=== PATIENT | male | born 1995 ===

== ENCOUNTER 2019-02-01 11:07 | Outpatient (REF) | payer BC, SELFPAY ==
[2019-02-01 22:12] LABS: Abs Immature Grans 0.03 k/cumm (0.0-0.09); Absolute Basophil Count 0.04 k/cumm (0.0-0.2); Absolute Eosinophil Count 0.31 k/cumm (0.0-0.7); Absolute Lymphocyte Count 2.63 k/cumm (1.2-3.4); Absolute Monocyte Count 0.82 k/cumm (0.11-0.7); Absolute Neutrophil Count 5.92 k/cumm (1.2-6.7); Basophils % 0.4; Eosinophils % 3.2; HCT 46.5 % (40.0-50.0); HGB 15.8 g/dL (13.5-17.5); Immature Grans % 0.3; Mean Corpuscular Hemoglobin 28.4 pg (27.0-33.0); Mean Corpuscular Volume 83.6 fL (80-95); Mean Platelet Volume 10.6 fL (8.0-11.0); Monocytes % 8.4; Neutrophils % 60.7; Platelet Count 269 x1000/uL (130-400); RBC 5.56 m/cumm (4.50-6.00); RBC Distribution Width 13.8 % (11.8-14.1); White Blood Cell Count 9.75 k/cumm (4.4-10.8)
[2019-02-01 22:50] LABS: ALT 49 U/L (16-63); AST 28 U/L (15-37); Albumin 4.3 g/dL (3.4-5.0); Alkaline Phosphatase 66 U/L (46-116); Anion Gap 10.2 mmol/L (3-11); BUN 15 mg/dL (7-18); Bilirubin, Total 0.4 mg/dL (0.2-1.0); CO2 25.8 mmol/L (21.0-32.0); CREATININE 0.96 mg/dL (0.70-1.30); Calcium 9.3 mg/dL (8.5-10.1); Calculated LDL 118 mg/dL; Chloride 105 mmol/L (98-107); Cholesterol 193 mg/dL (50-200); Glucose 86 mg/dL (70-100); HDL Cholesterol 29 mg/dL (40-60); Potassium 4.3 mmol/L (3.5-5.1); Sodium 141 mmol/L (136-145); TSH (W/Ref FT4) 1.46 uIU/mL (0.36-3.74); Total Protein 7.1 g/dL (6.4-8.2); Triglyceride 230 mg/dL (30-150)
[2019-02-01 22:51] LABS: Hemoglobin A1C 5.6 % (4.5-6.2)
== END 2019-02-01 11:27 ==
LOC: NCHCN 11:07
PROVIDERS: PCP Nurse Practitioner Community Health; Visit Provider Nurse Practitioner Community Health
DX: F41.9 Anxiety disorder, unspecified (principal); Z68.41 Body mass index [BMI] 40.0-44.9, adult; Z82.49 Family history of ischemic heart disease and other diseases of the circulatory system; Z83.49 Family history of other endocrine, nutritional and metabolic diseases; Z80.9 Family history of malignant neoplasm, unspecified
CPT/HCPCS: 80053; 80061; 83036; 84443; 85025

== ENCOUNTER 2022-12-10 10:24 | Outpatient (REF) | payer BC, SELFPAY ==
[2022-12-10 16:05] LABS: ALT 42 U/L (16-63); AST 29 U/L (15-37); Albumin 3.7 g/dL (3.4-5.0); Alkaline Phosphatase 69 U/L (46-116); Anion Gap 10.3 mmol/L (3-11); BUN 10 mg/dL (7-18); Bilirubin, Total 0.6 mg/dL (0.2-1.0); CO2 24.7 mmol/L (21.0-32.0); Calcium 9.6 mg/dL (8.5-10.1); Calculated LDL 119 mg/dL (<100); Chloride 104 mmol/L (98-107); Cholesterol 183 mg/dL (<200); Estimated GFR 105.14 (mL/min/1.73m2); Glucose 99 mg/dL (74-106); HDL Cholesterol 28 mg/dL (40-60); Sodium 139 mmol/L (136-145); Total Protein 7.1 g/dL (6.4-8.2); Triglyceride 181 mg/dL (<150)
== END 2022-12-10 10:25 | disposition home or self-care (01) ==
LOC: NCHCN 10:24
PROVIDERS: PCP Nurse Practitioner Community Health; Visit Provider Nurse Practitioner Family
DX: R03.0 Elevated blood-pressure reading, without diagnosis of hypertension (principal); E66.8 Other obesity; Z68.41 Body mass index [BMI] 40.0-44.9, adult; Z13.220 Encounter for screening for lipoid disorders
CPT/HCPCS: 80053; 80061

== ENCOUNTER 2024-06-18 17:50 | Outpatient (REF) | payer BC, SELFPAY ==
[2024-06-18 21:47] LABS: HCT 50.6 % (40.0-50.0); HGB 17.3 g/dL (13.5-17.5); MCH 27.5 pg (27.0-33.0); MCHC 34.2 % (32.0-36.0); MCV 81 fL (80-95); MPV 10.3 fL (8.0-11.0); Platelet Count 331 10^3/uL (130-400); RBC 6.28 10^6/uL (4.36-5.78); RDW 13.9 % (11.8-14.1); RDW-SD 40.6 fL; WBC 13.04 10^3/uL (4.4-10.8)
[2024-06-18 22:30] LABS: Anion Gap 11.3 mmol/L (3-11); BUN 10 mg/dL (7-18); CO2 24.7 mmol/L (21.0-32.0); Calcium 9.7 mg/dL (8.5-10.1); Chloride 105 mmol/L (98-107); Estimated GFR 103.84 (mL/min/1.73m2); Glucose 88 mg/dL (74-106); Potassium 4.1 mmol/L (3.5-5.1); Sodium 141 mmol/L (136-145)
== END 2024-06-18 17:51 | disposition home or self-care (01) ==
LOC: NCHCN 17:50
PROVIDERS: PCP Nurse Practitioner Community Health; Visit Provider Nurse Practitioner Family
DX: I82.409 Acute embolism and thrombosis of unspecified deep veins of unspecified lower extremity (principal)
CPT/HCPCS: 80048; 85027

== ENCOUNTER 2024-07-04 13:52 | Outpatient (REF) | payer BC, SELFPAY ==
[2024-07-04 14:29] LABS: Abs Immature Grans 0.03 10^3/uL (0.0-0.06); Absolute Basophil Count 0.11 10^3/uL (0.0-0.2); Absolute Eosinophil Count 0.84 10^3/uL (0.0-0.7); Absolute Lymphocyte Count 2.68 10^3/uL (1.2-3.4); Absolute Monocyte Count 0.72 10^3/uL (0.1-0.8); Eosinophils % 7.4 %; HCT 49.2 % (40.0-50.0); HGB 16.5 g/dL (13.5-17.5); Immature Grans % 0.3 %; Lymphocytes % 23.5 %; MCH 27.5 pg (27.0-33.0); MCHC 33.5 % (32.0-36.0); MCV 82 fL (80-95); MPV 10.5 fL (8.0-11.0); Monocytes % 6.3 %; Neutrophils % 61.5 %; Platelet Count 250 10^3/uL (130-400); RBC 5.99 10^6/uL (4.36-5.78); RDW 14.3 % (11.8-14.1); RDW-SD 42.9 fL; WBC 11.41 10^3/uL (4.4-10.8)
[2024-07-04 14:34] LABS: Absolute Neutrophil Count 7.02 10^3/uL (1.2-6.7)
[2024-07-04 16:34] LABS: ALT 50 U/L (16-63); AST 27 U/L (15-37); Alkaline Phosphatase 93 U/L (46-116); Anion Gap 13.2 mmol/L (3-11); BUN 10 mg/dL (7-18); Bilirubin, Total 0.5 mg/dL (0.2-1.0); CO2 24.8 mmol/L (21.0-32.0); Calcium 9.6 mg/dL (8.5-10.1); Calculated LDL 138 mg/dL (<100); Chloride 107 mmol/L (98-107); Cholesterol 210 mg/dL (<200); Estimated GFR 103.84 (mL/min/1.73m2); Glucose 98 mg/dL (74-106); HDL Cholesterol 33 mg/dL (>or=40); Sodium 145 mmol/L (136-145); Total Protein 7.5 g/dL (6.4-8.2); Triglyceride 198 mg/dL (<150)
== END 2024-07-04 13:53 | disposition home or self-care (01) ==
LOC: NCHCN 13:52
PROVIDERS: PCP Nurse Practitioner Community Health; Visit Provider Nurse Practitioner Family
DX: D75.1 Secondary polycythemia (principal); Z13.220 Encounter for screening for lipoid disorders
CPT/HCPCS: 80053; 80061; 85025

== ENCOUNTER 2024-07-10 13:37 | Outpatient (REF) | payer BC, SELFPAY ==
[2024-07-12 14:24] LABS: Chlamydia Result Negative (Negative); GC Result Negative (Negative)
== END 2024-07-10 13:38 | disposition home or self-care (01) ==
LOC: NCHCN 13:37
PROVIDERS: PCP Nurse Practitioner Community Health; Visit Provider Nurse Practitioner Family
DX: Z11.3 Encounter for screening for infections with a predominantly sexual mode of transmission (principal)
CPT/HCPCS: 87491; 87591